=== PATIENT | female | born 1930 | race Hispanic/Latino ===

== ENCOUNTER 2016-09-28 10:13 | Outpatient (CLI) | payer MEDICARE, OTHER ==
--- NOTE | 2016-09-28 13:59 | Ultrasound Report ---
RENAL ULTRASOUND: 09/28/16 CLINICAL: History of right hydronephrosis. COMPARISON: A retrograde pyelogram FINDINGS: High resolution ultrasound demonstrated normal nondilated renal collecting systems. Normal echogenicity of the kidneys. No right renal mass, cyst or calculus. A left lower pole echogenic focus measures 4 mm and is consistent with a nonobstructive calculus. The right kidney measures 10.1 x 4.1 x 4.8-cm. The renal parenchyma measures 1.3-cm in thickness. The left kidney measures 10.4 x 5.0 x 4.6-cm. The renal parenchyma measures 1.3-cm in thickness. Mildly distended and normal urinary bladder. IMPRESSION: Normal right kidney with resolution of right hydronephrosis. A 4 mm nonobstructive left lower pole renal calculus.
== END 2016-09-28 10:14 | disposition home or self-care (01) ==
LOC: SPVWC 10:13
PROVIDERS: ATTEND Urology
DX: N20.0 Calculus of kidney (principal); N32.89 Other specified disorders of bladder
CPT/HCPCS: 76770

== ENCOUNTER 2016-12-28 10:44 | Outpatient (CLI) | payer MEDICARE, OTHER ==
--- NOTE | 2016-12-28 11:14 | XRay Report ---
ABDOMEN RADIOGRAPHS INDICATION: Flank pain. COMPARISON: 06/18/2016 FINDINGS: Frontal abdominal radiograph demonstrates nonobstructive bowel gas pattern. No focal suspicious renal calcifications, pneumatosis or pneumoperitoneum identified radiographically in this patient with nonobstructing renal and bladder calculi known from 06/04/2016 CT. Numerous pelvic phleboliths. Ventricular pacemaker lead again seen. Stable bones with mild lower lumbar degenerative changes. CONCLUSION: No acute abdominal radiographic abnormality, as described. Thank you for the opportunity to participate in this patient's care.
== END 2016-12-28 10:45 | disposition home or self-care (01) ==
LOC: SPVIMAG 10:44
PROVIDERS: ATTEND Urology
DX: R10.9 Unspecified abdominal pain (principal); I87.8 Other specified disorders of veins; M47.896 Other spondylosis, lumbar region; Z95.0 Presence of cardiac pacemaker
CPT/HCPCS: 74000

== ENCOUNTER 2019-05-23 12:44 | Emergency (ER) | payer MEDICARE, OTHER ==
[2019-05-23] MEDS ORDERED: SODIUM CHLORIDE 0.9% 1000 ML 1,000 ML IV ONE (13:19)
--- NOTE | 2019-05-23 13:29 | Emergency Department Report ---
ED General Adult HPI - General Chief complaint: Syncope Stated complaint: WEAKNESS/N/V Time Seen by Provider: 05/23/19 13:09 Source: patient, family, EMS Mode of arrival: Stretcher Limitations: No Limitations - History of Present Illness Initial comments: This is a 8-year-old female who recently had I believe lithotripsy and stent placement. Apparently the patient had an impacted kidney stone. She was placed on an antibiotic for UTI. However culture revealed no growth as the discharge summary indicates. She presents to the emergency department stating that she felt like she was going to pass out. She has been having dysuria and hesitancy. He complains of nausea and vomiting. She has had no measured temperatures since her recent discharge. She doesn't believe she's had any chills. For discharge summary: Hospitalization Reason for admission: renal stone Hospital course: 88 YO Female with COPD, HTN, Atrial Fib, Sick Sinus Syndrome, Dementia, DM, Hypothyroidism, Cardiomyopathy S/P Pacemaker Placement. Pt admitted for Urinary Obstruction and Hydronephrosis S/P stent placement. Pt admitted directly at the request of Dr. Portillo for medical management. PT seen and evaluated upon arrival to her room. Pt denies fever, chills, CP, palpitations, NVD, Trauma, skin rash, productive cough. Pt denies any complaints. No reported nursing events. (1) Urinary obstruction/Hematuria / RT Prox uret stone Current Visit: Yes Status: Acute Plan to address problem: S/P surgical interventions, supportive care. Per urology discontinue amrtino in am and if stable can be discharged and on review today patient is much improved. (2) UTI (urinary tract infection) Current Visit: Yes Status: Acute Qualifiers: Encounter type: initial encounter Plan to address problem: No growth. Complete anbx on discharge (3) COPD (chronic obstructive pulmonary disease) Current Visit: Yes Status: Acute Qualifiers: COPD type: unspecified COPD Qualified Code(s): J44.9 - Chronic obstructive pulmonary disease, unspecified Plan to address problem: supplemental oxygen, nebulizer therapy, supportive care. (4) HTN (hypertension) Current Visit: Yes Status: Acute Qualifiers: Hypertension type: essential hypertension Qualified Code(s): I10 - Essential (primary) hypertension Plan to address problem: monitor bp q shift, supportive care. (5) Atrial fibrillation Current Visit: Yes Status: Acute Qualifiers: Atrial fibrillation type: unspecified Qualified Code(s): I48.91 - Unspecified atrial fibrillation Plan to address problem: Supportive are, resume therapeutic anticoagulation as per Urology. (6) Dementia Current Visit: Yes Status: Acute Qualifiers: Dementia behavioral disturbance: without behavioral disturbance Plan to address problem: Supportive care, neuro checks, -: Gradual Location: back (complains of some back pain and 70 pain but it sounds largely chronic) Severity scale (0 -10): 0 Quality: aching Consistency: intermittent Improves with: cold therapy Worsens with: none Associated Symptoms: denies other symptoms (except as above), nausea/vomiting - Related Data Home Medications Medication Instructions Recorded Confirmed Last Taken Digoxin [Lanoxin] 0.25 mg PO QDAY 10/22/13 05/19/19 05/18/19 09:00 Fenofibrate [Fenoglide] 134 mg PO QDAY 10/22/13 05/19/19 05/18/19 09:00 Levothyroxine [Synthroid] 88 mcg PO QDAY 10/22/13 05/19/19 05/18/19 09:00 Rosuvastatin Calcium [Crestor] 40 mg PO QDAY 10/22/13 05/19/19 05/18/19 09:00 Memantine HCl [Namenda] 10 mg PO BID 06/26/16 05/19/19 05/18/19 09:00 Vitamin D 1 tab PO DAILY 06/26/16 05/19/19 05/18/19 09:00 Xarelto 15 mg PO DAILY 05/08/19 05/19/19 05/16/19 09:00 metFORMIN [Glucophage] 500 mg PO BID 05/08/19 05/19/19 05/18/19 09:00 Previous Rx's Medication Instructions Recorded Last Taken Type levoFLOXacin [Levaquin TAB] 500 mg PO QDAY #4 tablet 05/21/19 Unknown Rx Nitrofurantoin [place]/M-Cryst 100 mg PO Q12HR #10 capsule 05/23/19 Unknown Rx [Macrobid CAP] Ondansetron [Zofran Odt] 4 mg PO Q6H PRN #7 tab.rapdis 05/23/19 Unknown Rx Allergies Allergy/AdvReac Type Severity Reaction Status Date / Time Penicillins Allergy Rash Verified 10/18/19 13:19 ED Review of Systems ROS: Stated complaint: WEAKNESS/N/V Other details as noted in HPI Constitutional: weakness Eyes: denies: eye pain, eye discharge, vision change ENT: denies: ear pain, throat pain Respiratory: denies: cough, shortness of breath, wheezing Cardiovascular: denies: chest pain, palpitations Endocrine: no symptoms reported Gastrointestinal: nausea, vomiting. denies: abdominal pain, diarrhea Genitourinary: urgency, dysuria. denies: discharge Musculoskeletal: back pain. denies: joint swelling, arthralgia Skin: denies: rash, lesions Neurological: denies: headache, weakness, paresthesias Psychiatric: denies: anxiety, depression Hematological/Lymphatic: denies: easy bleeding, easy bruising ED Past Medical Hx - Past Medical History Hx Hypertension: Yes Hx Heart Attack/AMI: No Hx Diabetes: Yes Hx GERD: Yes Hx Liver Disease: No Hx Renal Disease: No Hx Arthritis: Yes (POLYARTHRITIS) Hx Kidney Stones: Yes Hx COPD: Yes (no inhalers or recent exacerbation) Hx Tuberculosis: No Hx Dementia: Yes Additional medical history: pacemaker, afib, high cholestrol - Surgical History Hx Pacemaker: Yes - Social History Smoking Status: Never Smoker Substance Use Type: None - Medications Home Medications: Home Medications Medication Instructions Recorded Confirmed Last Taken Type Digoxin [Lanoxin] 0.25 mg PO QDAY 10/22/13 05/19/19 05/18/19 09:00 History Fenofibrate [Fenoglide] 134 mg PO QDAY 10/22/13 05/19/19 05/18/19 09:00 History Levothyroxine [Synthroid] 88 mcg PO QDAY 10/22/13 05/19/19 05/18/19 09:00 History Rosuvastatin Calcium [Crestor] 40 mg PO QDAY 10/22/13 05/19/19 05/18/19 09:00 History Memantine HCl [Namenda] 10 mg PO BID 06/26/16 05/19/19 05/18/19 09:00 History Vitamin D 1 tab PO DAILY 06/26/16 05/19/19 05/18/19 09:00 History Xarelto 15 mg PO DAILY 05/08/19 05/19/19 05/16/19 09:00 History metFORMIN [Glucophage] 500 mg PO BID 05/08/19 05/19/1919 09:00 History levoFLOXacin [Levaquin TAB] 500 mg PO QDAY #4 tablet 05/21/19 Unknown Rx Nitrofurantoin [place]/M-Cryst 100 mg PO Q12HR #10 capsule 05/23/19 Unknown Rx [Macrobid CAP] Ondansetron [Zofran Odt] 4 mg PO Q6H PRN #7 tab.rapdis 05/23/19 Unknown Rx ED Physical Exam - General Limitations: No Limitations General appearance: alert, in no apparent distress - Head Head exam: Present: atraumatic, normocephalic - Eye Eye exam: Present: normal appearance. Absent: scleral icterus - ENT ENT exam: Present: mucous membranes moist - Neck Neck exam: Present: normal inspection - Respiratory Respiratory exam: Present: normal lung sounds bilaterally. Absent: respiratory distress - Cardiovascular Cardiovascular Exam: Present: regular rate, normal rhythm. Absent: systolic murmur, diastolic murmur, rubs, gallop - GI/Abdominal GI/Abdominal exam: Present: soft, normal bowel sounds. Absent: distended, tenderness, guarding, rebound, rigid - Extremities Exam Extremities exam: Present: normal inspection - Back Exam Back exam: Present: normal inspection - Neurological Exam Neurological exam: Present: alert, oriented X3, CN II-XII intact. Absent: motor sensory deficit - Psychiatric Psychiatric exam: Present: normal affect, normal mood - Skin Skin exam: Present: warm, dry, intact, normal color. Absent: rash ED Course Vital Signs 05/23/19 05/23/19 05/23/19 13:08 13:14 13:25 Temperature 98.0 F 98 F Pulse Rate 74 74 Respiratory 13 13 13 Rate Blood Pressure 127/55 Blood Pressure 127/55 [Left] O2 Sat by Pulse 97 97 97 Oximetry ED Medical Decision Making - Lab Data Result diagrams: 05/23/19 13:39 05/23/19 13:39 Laboratory Results - last 24 hr 05/23/19 05/23/19 05/23/19 13:39 13:39 13:39 WBC 4.7 RBC 4.46 Hgb 13.0 Hct 39.3 MCV 88 MCH 29 MCHC 33 RDW 15.5 H Plt Count 212 Lymph % (Auto) 13.5 [place] % (Auto) 9.0 H Eos % (Auto) 1.1 Baso % (Auto) 0.4 Lymph # 0.6 L [place] # 0.4 Eos # 0.1 Baso # 0.0 Seg Neutrophils % 76.0 H Seg Neutrophils # 3.6 Sodium 140 Potassium 3.8 Chloride 103.5 Carbon Dioxide 24 Anion Gap 16 BUN 19 H Creatinine 1.0 Estimated GFR 53 BUN/Creatinine Ratio 19 Glucose 134 H Lactic Acid Calcium 9.7 Magnesium 1.90 CK-MB (CK-2) 2.1 Troponin T < 0.010 NT-Pro-B Natriuret Pep 754.5 05/23/19 13:39 WBC RBC Hgb Hct MCV MCH MCHC RDW Plt Count Lymph % (Auto) [place] % (Auto) Eos % (Auto) Baso % (Auto) Lymph # [place] # Eos # Baso # Seg Neutrophils % Seg Neutrophils # Sodium Potassium Chloride Carbon Dioxide Anion Gap BUN Creatinine Estimated GFR BUN/Creatinine Ratio Glucose Lactic Acid 1.40 Calcium Magnesium CK-MB (CK-2) Troponin T NT-Pro-B Natriuret Pep Laboratory Results - last 24 hr 05/23/19 05/23/19 05/23/19 13:39 13:39 13:39 WBC 4.7 RBC 4.46 Hgb 13.0 Hct 39.3 MCV 88 MCH 29 MCHC 33 RDW 15.5 H Plt Count 212 Lymph % (Auto) 13.5 [place] % (Auto) 9.0 H Eos % (Auto) 1.1 Baso % (Auto) 0.4 Lymph # 0.6 L [place] # 0.4 Eos # 0.1 Baso # 0.0 Seg Neutrophils % 76.0 H Seg Neutrophils # 3.6 PT 15.4 H INR 1.23 H APTT 28.6 Sodium 140 Potassium 3.8 Chloride 103.5 Carbon Dioxide 24 Anion Gap 16 BUN 19 H Creatinine 1.0 Estimated GFR 53 BUN/Creatinine Ratio 19 Glucose 134 H Lactic Acid Calcium 9.7 Magnesium 1.90 CK-MB (CK-2) 2.1 Troponin T < 0.010 NT-Pro-B Natriuret Pep 05/23/19 05/23/19 13:39 13:39 WBC RBC Hgb Hct MCV MCH MCHC RDW Plt Count Lymph % (Auto) [place] % (Auto) Eos % (Auto) Baso % (Auto) Lymph # [place] # Eos # Baso # Seg Neutrophils % Seg Neutrophils # PT INR APTT Sodium Potassium Chloride Carbon Dioxide Anion Gap BUN Creatinine Estimated GFR BUN/Creatinine Ratio Glucose Lactic Acid 1.40 Calcium Magnesium CK-MB (CK-2) Troponin T NT-Pro-B Natriuret Pep 754.5 Laboratory Results - last 24 hr 05/23/19 05/23/19 05/23/19 13:39 13:39 13:39 WBC 4.7 RBC 4.46 Hgb 13.0 Hct 39.3 MCV 88 MCH 29 MCHC 33 RDW 15.5 H Plt Count 212 Lymph % (Auto) 13.5 [place] % (Auto) 9.0 H Eos % (Auto) 1.1 Baso % (Auto) 0.4 Lymph # 0.6 L [place] # 0.4 Eos # 0.1 Baso # 0.0 Seg Neutrophils % 76.0 H Seg Neutrophils # 3.6 PT 15.4 H INR 1.23 H APTT 28.6 D-Dimer 226.80 Sodium 140 Potassium 3.8 Chloride 103.5 Carbon Dioxide 24 Anion Gap 16 BUN 19 H Creatinine 1.0 Estimated GFR 53 BUN/Creatinine Ratio 19 Glucose 134 H Lactic Acid Calcium 9.7 Magnesium 1.90 CK-MB (CK-2) 2.1 Troponin T < 0.010 NT-Pro-B Natriuret Pep Digoxin 05/23/19 05/23/19 05/23/19 13:39 13:39 13:53 WBC RBC Hgb Hct MCV MCH MCHC RDW Plt Count Lymph % (Auto) [place] % (Auto) Eos % (Auto) Baso % (Auto) Lymph # [place] # Eos # Baso # Seg Neutrophils % Seg Neutrophils # PT INR APTT D-Dimer Sodium Potassium Chloride Carbon Dioxide Anion Gap BUN Creatinine Estimated GFR BUN/Creatinine Ratio Glucose Lactic Acid 1.40 Calcium Magnesium CK-MB (CK-2) Troponin T NT-Pro-B Natriuret Pep 754.5 Digoxin 0.3 L - EKG Data -: EKG Interpreted by Me - EKG Data Interpretation: other (paced rhythm otherwise unremarkable complete capture) - Radiology Data Radiology results: report reviewed (CT head no acute process, chest x-ray cardiomegaly) Critical care attestation.: If time is entered above; I have spent that time in minutes in the direct care of this critically ill patient, excluding procedure time. 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 Return fever or chills. Follow up with Dr. Portillo on the urine culture. Return any acute change or problem. Take antibiotic until the urine culture is clear. Prescriptions: Nitrofurantoin [place]/M-Cryst [Macrobid CAP] 100 mg PO Q12HR #10 capsule Ondansetron [Zofran Odt] 4 mg PO Q6H PRN #7 tab.rapdis PRN Reason: Nausea Referrals: RAUL PORTILLO MD [Staff Physician] - 2-3 Days Time of Disposition: 15:02
--- NOTE | 2019-05-23 13:57 | XRay Report ---
CHEST 1 VIEW, 05/23/2019 1:23 PM CLINICAL INFORMATION/INDICATION: Syncope COMPARISON: None FINDINGS: SUPPORT DEVICES: Dual lead cardiac pacing device is present HEART: The cardiac silhouette is moderately enlarged. LUNGS/PLEURA: No focal airspace consolidation or significant pleural effusion is seen. ADDITIONAL FINDINGS: No additional acute findings. Evaluation of bony structures demonstrates no evid ence of acute bony abnormality. IMPRESSION: 1. Moderate enlargement of the cardiac silhouette. Signer Name: Della Portillo MD Signed: 05/23/2019 1:52 PM Workstation Name: [id number]
[2019-05-23 14:14] LABS: Basophils % (Auto) 0.4 % (0.0-1.8); Eosinophils # (Auto) 0.1 K/mm3 (0.0-0.4); Eosinophils % (Auto) 1.1 % (0.0-4.3); Hematocrit 39.3 % (30.3-42.9); Lymphocytes # (Auto) 0.6 K/mm3 (1.2-5.4); Lymphocytes % (Auto) 13.5 % (13.4-35.0); Mean Corpuscular HGB Conc 33 % (30-34); Mean Corpuscular Volume 88 fl (79-97); Monocytes # (Auto) 0.4 K/mm3 (0.0-0.8); Platelet Count 212 K/mm3 (140-440); Red Blood Count 4.46 M/mm3 (3.65-5.03); Red Cell Distribution Width 15.5 % (13.2-15.2)
[2019-05-23 14:27] LABS: BUN/Creatinine Ratio 19; Blood Urea Nitrogen 19 mg/dL (7-17); Calcium 9.7 mg/dL (8.4-10.2); Hemolysis Index 5
[2019-05-23 14:28] LABS: Creatine Kinase MB 2.1 ng/mL (0.0-4.0)
[2019-05-23 14:36] LABS: INR 1.23 (0.87-1.13)
[2019-05-23 14:37] LABS: Partial Thromboplastin Time 28.6 Sec. (24.2-36.6)
--- NOTE | 2019-05-23 14:50 | Cat Scan Report ---
CT head/brain wo con INDICATION / CLINICAL INFORMATION: 88 years Female; near syncope on xarelto. TECHNIQUE: Routine CT head without contrast. All CT scans at this location are performed using CT dos e reduction for ALARA by means of automated exposure control. COMPARISON: None. FINDINGS: BRAIN / INTRACRANIAL CONTENTS: No acute hemorrhage, mass effect, midline shift, hydrocephalus, or acu te, large territorial infarct. Moderate cortical involution is seen. Encephalomalacia is seen in the left frontal lobe white matter in the right parietal lobe white matter. Temporal horn tip is dilated bilaterally suggesting medial temporal lobe atrophy score of 4 on the le ft side and score of 2 on the right side. Moderate cortical involution is seen. Periventricular low d ensity areas are seen due to microvascular angiopathy. CRANIOCERVICAL JUNCTION: No significant abnormality. ORBITS: No significant abnormality of visualized orbits. SINUSES / MASTOIDS: No significant abnormality of the visualized paranasal sinuses or mastoid air farhat ls. ADDITIONAL FINDINGS: None. IMPRESSION: I do not see an acute parenchymal lesion I do not see hemorrhagic lesion in the brain Encephalomalacia in the left frontal lobe and right parietal lobe Signer Name: Favian Bradford MD Signed: 05/23/2019 2:46 PM Workstation Name: [id number]
[2019-05-23 15:08] LABS: Bilirubin,Urine NEG (Negative); Color,Urine Amber (Yellow)
[2019-05-23 15:09] LABS: Bacteria,Urine 2+ /HPF (Negative); Blood,Urine LG (Negative); RBC,Urine > 182.0 /HPF (0.0-6.0); Urobilinogen,Urine < 2.0 mg/dL (<2.0)
[2019-05-23 16:56] VITALS: BP 115/56
== END 2019-05-23 15:30 | disposition home or self-care (01) ==
LOC: ED 12:44
DX: F03.90 Unspecified dementia, unspecified severity, without behavioral disturbance, psychotic disturbance, mood disturbance, and anxiety (principal); E11.9 Type 2 diabetes mellitus without complications; R11.2 Nausea with vomiting, unspecified; R42 Dizziness and giddiness; I10 Essential (primary) hypertension; K21.9 Gastro-esophageal reflux disease without esophagitis; M19.90 Unspecified osteoarthritis, unspecified site; J44.9 Chronic obstructive pulmonary disease, unspecified; Z87.442 Personal history of urinary calculi; E78.00 Pure hypercholesterolemia, unspecified; Z79.84 Long term (current) use of oral hypoglycemic drugs; Z79.899 Other long term (current) drug therapy; Z88.0 Allergy status to penicillin
CPT/HCPCS: 36415; 70450; 71045; 80048; 80162; 81001; 82140; 82550; 82553; 83735; 83880; 84484; 85025; 85379; 85610; 85730; 87040; 87086; 93005; 93010; 96360; 99285; J7030

== ENCOUNTER 2019-06-11 06:08 | Day surgery (SDC) | payer MEDICARE, OTHER ==
[2019-06-11] MEDS ORDERED: BACTERIOSTATIC SODIUM CHLORIDE 0.9% 30 ML VIAL INFILTRATI ONE (06:37)
[2019-06-11] MEDS ORDERED: ONDANSETRON 4 MG/2 ML INJ IV PRN (07:18)
[2019-06-11] MEDS ORDERED: fentaNYL 100 MCG/2 ML INJ IV PRN (07:18)
[2019-06-11] MEDS ORDERED: ACETAMINOPHEN 325 MG TAB PO NR (07:19)
--- NOTE | 2019-06-11 07:19 | Anesthesia Day of Surgery ---
Anesthesia Day of Surgery - Day of Surgery Patient Examined: Yes Patient H&P Reviewed: Yes Patient is NPO: Yes
--- NOTE | 2019-06-11 07:24 | Anesthesia Consultation ---
Anesthesia Consult and Med Hx Date of service: 06/11/19 - Airway Anesthetic Teeth Evaluation: Chipped ROM Head & Neck: Adequate Mental/Hyoid Distance: Adequate Mallampati Class: Class II Intubation Access Assessment: Probably Good - Pre-Operative Health Status ASA Pre-Surgery Classification: ASA3 Proposed Anesthetic Plan: General - Pulmonary Hx Smoking: Yes (STOPPED 1965) COPD: Yes (no inhalers or recent exacerbation) Hx Sleep Apnea: No (MITALI PRE SCREEN LOW RISK.) - Cardiovascular System Hx Hypertension: Yes (+Cardiac clearance. ECHO, NST 2013) Hx Heart Attack/AMI: No Hx Percutaneous Transluminal Coronary Angioplasty (PTCA): No Hx Cardia Arrhythmia: Yes (a-fib, sick sinus. PVCs) Hx Pacemaker: Yes (2009, replaced 2016) Hx Valvular Heart Disease: Yes - Central Nervous System CVA: No (TIA) Hx Psychiatric Problems: Yes (dementia. 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
[2019-06-11 07:25] LABS: INR 1.1 (0.87-1.13)
[2019-06-11 07:26] LABS: Partial Thromboplastin Time 25.4 Sec. (24.2-36.6)
[2019-06-11] MEDS ORDERED: LIDOCAINE MPF (2%) 20 MG/1 ML VIAL 5 ML ONE (07:57)
[2019-06-11] MEDS ORDERED: fentaNYL 100 MCG/2 ML INJ ONE (07:58)
[2019-06-11] MEDS ORDERED: PROPOFOL 200 MG/20 ML VIAL IV ONE (07:58)
[2019-06-11] MEDS ORDERED: LACTATED RINGERS 1,000 ML IV SCH (08:00)
[2019-06-11] MEDS ORDERED: PHENYLEPHRINE 10 MG/1 ML INJ SDV ONE (08:55)
--- NOTE | 2019-06-11 09:53 | Operative Report ---
PREOPERATIVE DIAGNOSIS: Right ureteral and ureteropelvic junction stone post-stent. POSTOPERATIVE DIAGNOSES: Right ureteral and ureteropelvic junction stone post-stent. PROCEDURE: Right ESWL. SURGEON: Dr. Mathews. ANESTHESIA: General. FINDINGS: This is a woman who is 88 years of age with an upper ureteral stone. She has a stent. She now presents for lithotripsy. DESCRIPTION OF PROCEDURE: The patient was brought to lithotripsy and placed on the table. Stone was easily localized both the AP and oblique image. Shocks were begun at 1 kV, increased to maximum of 7 kV. The stone was quite dense, did not fragment as much as I would like. I discussed this with her daughter. She tolerated the procedure well. She may need more invasive procedures either percutaneous nephrolithotomy or an ureteroscopy. She understands that. JOB# [id number] JAYLEEN/ALEXEI
--- NOTE | 2019-06-11 10:41 | Post Operative Note ---
Date of procedure: 06/11/19 Pre-op diagnosis: stones Post-op diagnosis: same Findings: large upj stone Procedure: eswl Anesthesia: THOMAS Surgeon: ANDREW GILBERT Estimated blood loss: none Pathology: none Condition: stable Disposition: PACU
--- NOTE | 2019-06-11 10:42 | Discharge Summary ---
Short Stay Discharge Plan Activity: other (no straining ) Weight Bearing Status: Full Weight Bearing Diet: low fat, low cholesterol, low salt Special Instructions: other (inc fluids ) Durable Medical Equipment Needed Upon Discharge: other (has stent ) Follow up with: ELOISA SHARPE JR, MD [Primary Care Provider] - 7 Days RAUL TREVINO MD [Staff Physician] - 7 Days Forms: Outpatient Surgery DC Inst.
[2019-06-11 11:35] VITALS: BP 118/58
--- NOTE | 2019-06-11 21:29 | Post Anesthesia Evaluation ---
- Post Anesthesia Evaluation Patient Participated: Yes Airway Patent: Yes Stable Respiratory Function: Yes Nausea/Vomiting: No Temp > 96.8F: Yes Pain Manageable: Yes Adequeate Hydration: Yes Anesthesia Complications: No Block Receding Appropriately: Not Applicable Patient on Ventilator: No
== END 2019-06-11 11:30 | disposition home or self-care (01) ==
LOC: OR 06:08
PROVIDERS: ATTEND Urology
DX: N20.1 Calculus of ureter (principal); J44.9 Chronic obstructive pulmonary disease, unspecified; I10 Essential (primary) hypertension; E78.00 Pure hypercholesterolemia, unspecified; I48.91 Unspecified atrial fibrillation; F03.90 Unspecified dementia, unspecified severity, without behavioral disturbance, psychotic disturbance, mood disturbance, and anxiety; Z88.0 Allergy status to penicillin; Z79.84 Long term (current) use of oral hypoglycemic drugs; Z87.891 Personal history of nicotine dependence; Z87.440 Personal history of urinary (tract) infections; Z95.0 Presence of cardiac pacemaker; Z86.73 Personal history of transient ischemic attack (TIA), and cerebral infarction without residual deficits
CPT/HCPCS: 36415; 50590; 82962; 85610; 85730; J1956; J2370; J2704; J3010; J7120

== ENCOUNTER 2019-07-09 08:35 | Day surgery (SDC) | payer MEDICARE, OTHER ==
[~2019-07-09 08:35] MED LIST: IOHEXOL 300 MG/ML 50ML IV ONE; WATER FOR IRRIG STERILE 2000 ML IR ONE
[2019-07-09] MEDS ORDERED: SODIUM CHLORIDE 0.9% 1000 ML 1,000 ML IV SCH (09:15)
--- NOTE | 2019-07-09 09:32 | Short Stay Summary ---
Short Stay Documentation Date of service: 07/09/19 - History H&P: obtained from office - Allergies and Medications Current Medications: Allergies Penicillins Allergy (Verified 05/08/19 13:19) Rash RASH & WHELPS Home Medications Medication Instructions Recorded Confirmed Last Taken Type Digoxin [Lanoxin] 0.25 mg PO QDAY 10/22/13 07/03/19 06/10/19 History Fenofibrate [Fenoglide] 134 mg PO QDAY 10/22/13 07/03/19 06/10/19 History Levothyroxine [Synthroid] 88 mcg PO QDAY 10/22/13 07/03/19 06/10/19 History Rosuvastatin Calcium [Crestor] 40 mg PO QDAY 10/22/13 07/03/19 06/10/19 History Memantine HCl [Namenda] 10 mg PO BID 06/26/16 07/03/19 06/10/19 History Vitamin D 1 tab PO DAILY 06/26/16 07/03/19 06/10/19 History Xarelto 15 mg PO DAILY 05/08/19 07/03/19 06/09/19 History metFORMIN [Glucophage] 500 mg PO BID 05/08/19 07/03/19 06/10/19 History Ondansetron [Zofran Odt] 4 mg PO Q6H PRN #7 tab.rapdis 05/23/19 07/03/19 06/10/19 Rx Rivastigmine [Rivastigmine Patch 1 patch TP DAILY 06/11/19 07/03/19 06/10/19 History 13.3mg/24hr] Ciprofloxacin HCl [Ciprofloxacin 250 mg PO BID 07/03/19 07/03/19 Unknown History TAB] Active Medications Levofloxacin/Dextrose (Levaquin 250mg/50ml) 250 mg in 50 mls @ 50 mls/hr IV PREOP PAULINE; Protocol Stop: 07/09/19 15:00 Sodium Chloride (Nacl 0.9% 1000 Ml) 1,000 mls @ 100 mls/hr IV DIRECT PAULINE - Brief post op/procedure progress note Date of procedure: 07/09/19 Pre-op diagnosis: right renal and UPJ stone 12 mm Post-op diagnosis: same Procedure: cysto, rpg right urs, laser, sbe, stent change rpg right rpg Anesthesia: GETA Surgeon: RAUL TREVINO Estimated blood loss: minimal Pathology: list Specimen disposition: to lab Condition: stable - Hospital course Hospital course: or pacu home - Disposition Condition at discharge: Good Disposition: DC-01 TO HOME OR SELFCARE Short Stay Discharge Plan Activity: advance as tolerated Diet: advance as tolerated Follow up with: RAUL TREVINO MD [Staff Physician] - 14 Days
[2019-07-09] MEDS ORDERED: fentaNYL 100 MCG/2 ML INJ IV PRN (09:33)
--- NOTE | 2019-07-09 09:35 | Anesthesia Consultation ---
Anesthesia Consult and Med Hx Date of service: 07/09/19 - Airway Anesthetic Teeth Evaluation: Partials ROM Head & Neck: Adequate Mental/Hyoid Distance: Inadequate Mallampati Class: Class III Intubation Access Assessment: Possibly Difficult (previous easy LMA 3) - Pulmonary Exam CTA: Yes - Cardiac Exam Cardiac Exam: RRR - Pre-Operative Health Status ASA Pre-Surgery Classification: ASA3 Proposed Anesthetic Plan: General - Pulmonary Hx Smoking: Yes (STOPPED 1965) Hx Respiratory Symptoms: No COPD: Yes (no inhalers or recent exacerbation) Hx Sleep Apnea: No (MITALI PRE SCREEN LOW RISK.) - Cardiovascular System Hx Hypertension: Yes Hx Heart Attack/AMI: No Hx Percutaneous Transluminal Coronary Angioplasty (PTCA): No Hx Cardia Arrhythmia: Yes (a-fib, sick sinus, PVCs) Hx Pacemaker: Yes (2009, replaced 2016; last interrogated ~3 months ago) Hx Internal Defibrillator: No Hx Valvular Heart Disease: Yes - Central Nervous System CVA: Yes (Hx TIA) Hx Back Pain: Yes Hx Psychiatric Problems: Yes (dementia) - Gastrointestinal Hx Gastroesophageal Reflux Disease: No - Endocrine Hx Renal Disease: No Hx Liver Disease: No Hx Non-Insulin Dependent Diabetes: Yes Hx Hypothyroidism: Yes - Hematic Hx Anemia: Yes - Other Systems Hx Obesity: No - Additional Comments Anesthesia Medical History Comments: No hx anesthetic complications. Consent signed by daughter at bedside.
--- NOTE | 2019-07-09 09:36 | Anesthesia Day of Surgery ---
Anesthesia Day of Surgery - Day of Surgery Patient Examined: Yes Patient H&P Reviewed: Yes Patient is NPO: Yes
[2019-07-09] MEDS ORDERED: fentaNYL 100 MCG/2 ML INJ ONE (10:10)
[2019-07-09] MEDS ORDERED: PROPOFOL 200 MG/20 ML VIAL IV ONE (10:10)
[2019-07-09] MEDS ORDERED: LIDOCAINE MPF (2%) 20 MG/1 ML VIAL 5 ML ONE (10:10)
[2019-07-09] MEDS ORDERED: WATER FOR IRRIG STERILE 2000 ML IR ONE (10:27)
[2019-07-09] MEDS ORDERED: PHENYLEPHRINE/NS 1,000 MCG/10 ML SYRINGE (OR USE) IV ONE ×2 (11:11)
--- NOTE | 2019-07-09 12:57 | Fluoroscopy Report ---
10 fluoroscopic images submitted Indication: Intraoperative localization Impression: 10 images of the abdomen were submitted for documentation purposes with radiology kiran lópez. Right-sided retrograde pyelogram was performed with laser therapy for stone removal and right -sided double-J ureteral stent exchange. Please refer to operative note for complete details. A total of 20 mL of Omnipaque 300 was utilized for this exam. Fluoroscopic time: 1.8 minutes Signer Name: Scot Goetz MD Signed: 07/09/2019 12:52 PM Workstation Name: [id number]
[2019-07-09 13:32] VITALS: BP 120/64
--- NOTE | 2019-07-09 14:00 | Post Anesthesia Evaluation ---
- Post Anesthesia Evaluation Patient Participated: Yes Airway Patent: Yes Stable Respiratory Function: Yes Nausea/Vomiting: No Temp > 96.8F: Yes Pain Manageable: Yes Adequeate Hydration: Yes Anesthesia Complications: No
--- NOTE | 2019-07-24 13:58 | Operative Report ---
PREOPERATIVE DIAGNOSIS: Right renal ureteropelvic junction stone. POSTOPERATIVE DIAGNOSIS: Right renal ureteropelvic junction stone. PROCEDURE: Cystoscopy, RPG, right ureteroscopy, laser fragmentation of stone, stone basket extraction, stent change, right RPG. ANESTHESIA: General. SURGEON: Rikki Portillo M.D. ESTIMATED BLOOD LOSS: Minimal. PATHOLOGY: Some stone fragments. SPECIMENS: To lab. CONDITION: Stable. CLINICAL INDICATIONS: The patient was counseled on RCBA, antibiotics, SCDs, had a right spiculated UPJ stone, which was impacted, had a stent placed, was a difficult stent placement originally and then had shockwave lithotripsy. On followup imaging, the stone was still visible and does measured about 10 mm in size, but it was very faint on the imaging preoperatively. The patient is scheduled for this procedure, had antibiotics, SCDs. DESCRIPTION OF PROCEDURE: The patient was transferred to OR suite in supine position, anesthesia, dorsal lithotomy, prepped and draped in standard fashion. A 22-Russian scope was passed. Glidewire passed adjacent to the stent. With some manipulation, we were able to pass this into the right renal pelvis above the stone and above the double J. The double J was grasped, pulled out intact. Next, a rigid ureteroscope was passed up the ureter. There were some stones identified within the ureter. These were grasped and pulled out, dropped within the bladder with triceps forceps. A second wire was passed. A flexible scope was passed. We got up to the UPJ. The stone was identified. It was still there in significant size spiculated. Holmium laser fiber passed. We began fragmentation of the stone. Once again it was much bigger than suspected, up to 12 mm. This was fragmented into smaller and smaller pieces. With possibly and given the position and location, with stone being pushed back. At this point, the scope was passed within the renal pelvis and any residual stones we attempted to visualize, did see some stones in the mid to lower pole. These were fragmented further, but no significant large stones. Of note, intermittently the rigid scope was passed. We allowed some fragments to pass down the ureter, some of these were grasped with passage of the ureteroscope, ___ some of these stents as they were broken up and passed and dropped them within the bladder. Some of these specimens at the end of the procedure were sent for pathology for chemical analysis. At this point, wire was backloaded on the cystoscope. A 6-Russian double-J stent was passed under direct and fluoroscopic visualization. The patient was awakened and transferred to the PACU in good and stable condition. PLAN: Removal and stent in about 2-3 weeks. JOB# [id number] ATS/NTS
== END 2019-07-09 13:41 | disposition home or self-care (01) ==
LOC: OR 08:35
PROVIDERS: ATTEND Urology
DX: N20.0 Calculus of kidney (principal); J44.9 Chronic obstructive pulmonary disease, unspecified; R31.0 Gross hematuria; I10 Essential (primary) hypertension; I48.91 Unspecified atrial fibrillation; F03.90 Unspecified dementia, unspecified severity, without behavioral disturbance, psychotic disturbance, mood disturbance, and anxiety; I42.9 Cardiomyopathy, unspecified; K21.9 Gastro-esophageal reflux disease without esophagitis; M19.90 Unspecified osteoarthritis, unspecified site; E11.9 Type 2 diabetes mellitus without complications; E03.9 Hypothyroidism, unspecified; F41.9 Anxiety disorder, unspecified; Z98.890 Other specified postprocedural states; Z79.899 Other long term (current) drug therapy; Z95.0 Presence of cardiac pacemaker; Z88.0 Allergy status to penicillin; Z79.84 Long term (current) use of oral hypoglycemic drugs; Z87.891 Personal history of nicotine dependence; Z87.440 Personal history of urinary (tract) infections; Z98.41 Cataract extraction status, right eye; Z98.42 Cataract extraction status, left eye; Z86.73 Personal history of transient ischemic attack (TIA), and cerebral infarction without residual deficits; Z86.2 Personal history of diseases of the blood and blood-forming organs and certain disorders involving the immune mechanism
CPT/HCPCS: 36415; 52356; 74420; 82365; 82962; 87086; A4217; C1726; C1758; C1769; C2617; J1956; J2370; J2704; J3010; J7030; Q9967